=== PATIENT | female | born 1955 | race Caucasian/White ===

== ENCOUNTER 2018-08-03 00:32 | Outpatient (CLI) | payer OTHER, SELFPAY ==
--- NOTE | 2018-08-03 17:45 | DI.MAMMO_ITS ---
SYMPTOM/DIAGNOSIS: SCREENING, Z12.31 MAMMOGRAMS: Mammograms were interpreted according to the usual protocol including computer analysis with CAD system, tomosynthesis and C view imaging. Comparison is with the prior examinations. No masses or microcalcifications are seen. There is nothing to suggest malignancy. IMPRESSION: Negative mammogram. Routine screening is recommended. Category 1 , breast density B. MQSA ASSESSMENT OF FINDINGS: Negative. Category 1. Patient will receive a letter notifying them of these results. BI-RADS category B. There are scattered areas of fibroglandular density.
== END 2018-08-03 00:52 ==
PROVIDERS: PCP Nurse Practitioner Family; Visit Provider Nurse Practitioner Family
DX: Z12.31 Encounter for screening mammogram for malignant neoplasm of breast (principal)
CPT/HCPCS: 77063; 77067

== ENCOUNTER → 2018-10-11 14:44 | Outpatient (BNVA) | payer MEDICARE, OTHER, SELFPAY | PROVIDERS: PCP Nurse Practitioner Family; Visit Provider Surgery | DX: Z12.11 Encounter for screening for malignant neoplasm of colon (principal); Z86.010 Personal history of colon polyps ==

== ENCOUNTER 2018-11-01 06:57 | Day surgery (SDC) | payer OTHER, MEDICARE, SELFPAY ==
--- NOTE | 2018-11-01 06:50 | COLE_ITS ---
Date of service: 11/01/18 Time of Service: 07:55 Colonoscopy Report Date of procedure: 11/01/18 Pre-op diagnosis general: Hx of colon Polyps Post-op diagnosis procedure note: other (mild diverticulosis, transverse colon polyp) Procedure: Colonoscopy with polypectomy by snare Surgeon: Wanda Molina Anesthesia proc note operative: MAC (Ilana Chris, MANNEQUIN MOLD MAKER/ ASA 2) Estimated blood loss (mL): 3 Pathology: other (Transverse polyp) Complications: None Disposition: same day Indications: Mrs. Lindsay is a pleasant 63-year-old female who was seen in the office for a follow-up colonoscopy. At the time of her last colonoscopy she was found to have a tubular adenoma. Risks, benefits, complications were reviewed with her and she wished to proceed. No guarantees were given or implied Prep: Miralax/Dulcolax Procedure Start Time: 07:55 Procedure End Time: 08:15 Retraction Time: 13 Findings: One pedunculated polyp in the transverse colon. Mild diverticulosis of the sigmoid colon Procedure Description: After informed consent was obtained the patient was taken to the procedure room and placed in a left decubitous position. Monitors were applied and a time out was done. The patients name, date of , procedure, allergies to medications and metal in their body was reviewed. The patient was then sedated. Once sedated and comfortable a rectal exam was done. External exam was normal. Internal exam revealed a normal sphincter tone and no palpable masses. The scope was then introduced and retro-flexed. No internal hemorrhoids were identified. The scope was then advanced to the cecum without difficulty. The TI and appendiceal orifice were identified. The prep was good. The scope was then slowly retracted over 13 minutes back into the rectum. One pedunculated polyp was identified in the transverse colon and removed with a snare. A tattooed was noted in the sigmoid colon at the site of her old polyp. No regrowth was noted. There was mild diverticulosis in the sigmoid colon. The scope was removed and the patient was woken up and taken back to Same day surgery in stable condition. The patient tolerated the procedure well and there were no immediate complications. Follow up: The patient should follow up in 3-5 years unless they develop changes in bowel habits or other new gastrointestinal complaints.
--- NOTE | 2018-11-01 06:51 | PDOC.DSDIS_ITS ---
Discharge Plan Disposition Patient Disposition: HOME Condition: Good Discharge Details Reason For Visit: PERSONAL HX COLON POLYPS Attending Provider: Wanda Molina Primary Care Provider: Vani Hale Home Meds and New Rx's Prescriptions: Continue diphenhydramine HCl [Benadryl] 25 MG capsule 25 mg PO PRN RF: 0 pantoprazole 20 MG tablet,delayed release (DR/EC) 20 mg PO DAILY Qty: 90 RF: 3 Varicella-Zoster Ge/As01b/Pf [Shingrix Vial Kit] 50 MCG INJ 50 mcg IM ONCE Qty: 1 RF: 1 Discharge Instructions Instructions: Colonoscopy (DC), Colorectal Polyps (DC), Diverticulosis (DC) Additional Instructions: Findings: 1. One polyp 2. mild diverticulosis Follow up: 3-5 years new medications: none Please call if you develop: fevers >101.5 Nausea or Vomiting Abdominal pain that is not transient DAY SURGERY UNIT POST COLONOSCOPY INSTRUCTIONS 1. Because there will be medication in your system for the next 24 hours, you may feel a little sleepy. Your coordination will be affected. Therefore: a. Do not drive or operate dangerous equipment for 24 hours. b. Do not drink alcohol beverages for 24 hours (not even beer). c. Plan to go home and rest for the day. 2. Generally there are no restrictions on your activity after a day or so has gone by, but you may feel a bit fatigued for a few days. 3 After you arrive home you may have a light meal and return to a normal diet as you can tolerate it without feeling sick to your stomach. 4. After surgery, you may feel pain or discomfort. This should be only transient , but if it persists please contact your doctor. 5. If there are any questions regarding the findings of your procedure, please feel free to contact your doctor. 6. If you are unable to contact your doctor with a problem, contact the hospital at [phone]. 7. Continue all your regular medications unless directed otherwise. I understand the above instructions and have no questions. Signature of Patient or Responsible Adult Escort Date/Time Name of Responsible Adult Escort Signature of Nurse Date/Time Activity:: Activity as Tolerated Diet:: high fiber diet Discharge Orders Discharge Orders: Discharge Order (Routine); Ordered 11/01/18 Ordered By: Wanda Molina DS: Diagnosis Discharge Diagnosis (1) Colorectal polyp detected on colonoscopy: Status: Acute
[2018-11-01 07:03] VITALS: BP 125/64; PULSE 71; RESP 16; TEMP 35.7; O2SAT 100
[2018-11-01] MEDS: Sodium Citrate 30 ML CUP (07:47)
[2018-11-01] MEDS: Lactated Ringers 1,000 ML 30 ML IV (07:48)
--- NOTE | 2018-11-01 08:00 | BOWEL_PTH ---
PATIENT: Melina Lindsay LOC: [facility] U#:[id number] AGE/SX: 63/F ROOM: RE11/01/[address]: Wanda Molina MD : 1955 BED: DIS: 11/01/2018 SPEC #: [id number] RECD: 11/01/18 11:30 STATUS: SANDRITA REEde #: [id number] DARWIN: 11/01/18 08:[address]: Wanda Molina DEPT: Surgical Specimen RECD BY: Nilda Gold ENTERED: 11/01/18 11:32 SP TYPE: Bowel OTHR DR: Vani Hale APRN Tissues: 1 - BIOPSY BOWEL Procedures: GROSS AND MICRO LEVEL 4 Comments: [id number]
[2018-11-01 09:09] VITALS: BP 125/53; PULSE 57; RESP 16; TEMP 36; O2SAT 100
== END 2018-11-01 09:33 | disposition home or self-care (01) ==
LOC: SUR 06:57
PROVIDERS: PCP Nurse Practitioner Family; Visit Provider Surgery
PROC: 0DJD8ZZ Inspection of Lower Intestinal Tract, Via Natural or Artificial Opening Endoscopic (ICD-10-PCS; CPT 45378; principal; 2018-11-01 08:30)
DX: Z12.11 Encounter for screening for malignant neoplasm of colon (principal); D12.3 Benign neoplasm of transverse colon; K57.30 Diverticulosis of large intestine without perforation or abscess without bleeding; Z86.010 Personal history of colon polyps; K21.9 Gastro-esophageal reflux disease without esophagitis
CPT/HCPCS: 45385; 88305

== ENCOUNTER 2020-11-12 02:10 | Outpatient (CLI) | payer OTHER, MEDICARE, SELFPAY ==
[2020-11-13 15:21] LABS: COVID-19 RT-PCR UVMMC Result Negative (Negative)
== END 2020-11-12 02:30 ==
PROVIDERS: PCP Nurse Practitioner Family; Visit Provider Nurse Practitioner Family
DX: Z20.828 Contact with and (suspected) exposure to other viral communicable diseases (principal)
CPT/HCPCS: U0003

== ENCOUNTER 2021-06-25 02:30 | Outpatient (CLI) | payer OTHER, MEDICARE, SELFPAY ==
--- NOTE | 2021-06-25 08:16 | DI.MAMMO_ITS ---
Exam(s) MAMMO SCREENING EXAM: MAMMO SCREENING CLINICAL HISTORY: screening TECHNIQUE: Bilateral full field digital CC and MLO mammographic images were obtained with 3D tomosyn thesis and utilizing computer aided detection (CAD). COMPARISON: Available for comparison. FINDINGS: Masses/Architectural Distortion: None seen. Microcalcifications: No suspicious pleomorphic-type are seen. Skin Thickening/Nipple Retraction: None. IMPRESSION: 1. No significant interval change with no specific features of malignancy noted. 2. Unless there is more urgent need, screening mammography is recommended, as per [place] [employer] guidelines. BI-RADS Category 1 - Negative Breast Density - Category B - Scattered areas of fibroglandular density Breast density category C or D implies that the patient has dense breast tissue. Dense breast tissue is very common and is not abnormal but dense breast tissue can make it harder to find cancer on a ma mmogram. Also, dense breast tissue may increase their breast cancer risk. This information about the result of the mammogram report was provided to the patient to raise their awareness. Use this report when you speak with the patient about their risks for breast cancer, which includes their family hist ory. At that time, you may recommend for more screening tests (Ultrasound or MRI) as they might be us eful based on their risk. A negative radiographic report should not delay biopsy if a dominant or clinically suspicious mass is present. Up to ten percent of cancers are not identified on mammography. A negative report may reinforce clinical impression. Adenosis and dense breasts may obscure an underlying neoplasm. False positive reports average 6 to 10%. Patient will receive a letter notifying them of these results.
== END 2021-06-25 02:50 ==
PROVIDERS: PCP Nurse Practitioner Family; Visit Provider Nurse Practitioner Family
DX: Z12.31 Encounter for screening mammogram for malignant neoplasm of breast (principal); R92.8 Other abnormal and inconclusive findings on diagnostic imaging of breast
CPT/HCPCS: 77063; 77067

== ENCOUNTER 2021-06-25 03:35 | Outpatient (CLI) | payer OTHER, MEDICARE, SELFPAY ==
[2021-06-25 11:53] LABS: Anion Gap 8.5 mmol/L (3-11); BUN 14 mg/dL (7-18); CO2 30.5 mmol/L (21.0-32.0); Calculated LDL 96 mg/dL (<100); Chloride 106 mmol/L (98-107); Cholesterol 161 mg/dL (<200); Glucose 71 mg/dL (74-106); HDL Cholesterol 56 mg/dL (40-60); Potassium 4.2 mmol/L (3.5-5.1); Sodium 145 mmol/L (136-145); Triglyceride 46 mg/dL (<150)
== END 2021-06-25 03:36 | disposition home or self-care (01) ==
LOC: LBO 03:35
PROVIDERS: PCP Nurse Practitioner Family; Visit Provider Nurse Practitioner Family
DX: E78.5 Hyperlipidemia, unspecified (principal); Z13.1 Encounter for screening for diabetes mellitus
CPT/HCPCS: 36415; 80048; 80061

== ENCOUNTER → 2022-05-13 09:36 | Outpatient (CLI) | payer MEDICARE, SELFPAY ==
--- NOTE | 2022-05-13 10:52 | DI.RAD_ITS ---
Exam(s) XR HIP LT COMPLETE AP PELVIS EXAM: XR HIP LT COMPLETE AP PELVIS CLINICAL HISTORY: Pain after a fall W19.XXXA. TECHNIQUE: 2D digital imaging was performed. COMPARISON: No exams were available for comparison FINDINGS: 3 views No evidence of pelvic nor hip fracture. Mild degenerative changes noted in the left hip. There is n o joint space narrowing but there is a small marginal osteophyte at the level of the left femoral hea d, this best seen on the lateral view. Bone density normal. No osseous lesions identified. Sacroiliac joints unremarkable. IMPRESSION: Mild degenerative changes in the left hip, as described above DATA REPOSITORY: RADIATION DOSE DELIVERED:
== END ==
PROVIDERS: PCP Nurse Practitioner Family; Visit Provider Family Medicine
DX: W19.XXXA Unspecified fall, initial encounter (principal); G89.11 Acute pain due to trauma; M25.552 Pain in left hip
CPT/HCPCS: 73502

== ENCOUNTER 2022-07-24 03:00 | Outpatient (CLI) | payer MEDICARE, SELFPAY ==
[2022-07-24 09:59] LABS: Anion Gap 6.7 mmol/L (3-11); BUN 15 mg/dL (7-18); CO2 28.3 mmol/L (21.0-32.0); CREATININE 1.1 mg/dL (0.55-1.02); Calcium 8.9 mg/dL (8.5-10.1); Chloride 106 mmol/L (98-107); Estimated GFR 49.39 (mL/min/1.73m2); Glucose 84 mg/dL (74-106); Potassium 3.7 mmol/L (3.5-5.1); Sodium 141 mmol/L (136-145)
== END 2022-07-24 03:01 | disposition home or self-care (01) ==
LOC: LBO 03:00
PROVIDERS: PCP Nurse Practitioner Family; Visit Provider Nurse Practitioner Family
DX: Z13.1 Encounter for screening for diabetes mellitus (principal)
CPT/HCPCS: 36415; 80048

== ENCOUNTER → 2022-10-03 00:45 | Outpatient (CLI) | payer MEDICARE, SELFPAY ==
--- NOTE | 2022-10-03 08:15 | DI.DEXA_ITS ---
Exam(s) XR DEXA BONE DENSITY W/WO YASMIN EXAM: XR DEXA BONE DENSITY W/WO YASMIN CLINICAL HISTORY: screeNing for osteoporosis IN POSTMENOPAUSAL WOMAN,Z78.0 TECHNIQUE: Routine DEXA evaluation of the lumbar spine, hip, or forearm. COMPARISON: No exams were available for comparison FINDINGS: Performed on a Hologic unit. Lateral image: No compression fracture evident. Lumbar Spine total T-score: -2.1 Hip total T-score:-2.6 Independent reading at the level of the femoral neck yields at T-score of -2.0 Forearm total T-score: -1.6 IMPRESSION: Bone mineral density measures in the osteoporosis range. Fracture risk is high. Note: Any spine fracture indicates 5x risk for subsequent spine fracture and 2x risk for subsequent h ip fracture. World Health Organization criteria for BMD interpretation classify patients: Normal...... T- Score at or above -1.0 Osteopenic... T- Score between -1.0 and -2.5 Osteoporosis... T-Score at or below -2.5
--- NOTE | 2022-10-03 08:15 | DI.MAMMO_ITS ---
Exam(s) MAMMO SCREENING EXAM: MAMMO SCREENING CLINICAL HISTORY: screening,Z12.39. TECHNIQUE: Bilateral full field digital CC and MLO mammographic images were obtained with 3D tomosyn thesis and utilizing computer aided detection (CAD). COMPARISON: Prior mammograms were reviewed. FINDINGS: There has been no significant change in the appearance and distribution of the fibroglandular tissue. There are no new spiculated masses nor malignant appearing microcalcification groups. Asymmetric density laterally in left breast is unchanged. There is no significant architectural distortion nor skin thickening-retraction. IMPRESSION: No radiographic evidence of malignancy. BI-RADS Category 1 - Negative Breast Density - Category B - Scattered areas of fibroglandular density Breast density Category C or D implies that the patient has dense breast tissue. Dense breast tissue can make it harder to find cancer on a mammogram. Dense breast tissue is also associated with an incr eased risk of breast cancer. This information about the result of the mammogram report was provided to the patient to raise their awareness. Use this report when you speak with the patient about their risks for breast cancer, which includes their family history. At that time, you may recommend additional screening tests (Ultrasoun d or MRI) as these tests may add significant information. A negative radiographic report should not delay biopsy if a dominant or clinically suspicious mass is present. Up to ten percent of cancers are not identified on mammography. A negative report may reinforce clinical impression. Adenosis and dense breasts may obscure an underlying neoplasm. False positive reports average 6 to 10%. Patient will receive a letter notifying them of these results.
== END ==
PROVIDERS: PCP Nurse Practitioner Family; Visit Provider Nurse Practitioner Family
DX: Z12.31 Encounter for screening mammogram for malignant neoplasm of breast (principal); Z13.820 Encounter for screening for osteoporosis; Z78.0 Asymptomatic menopausal state; M81.0 Age-related osteoporosis without current pathological fracture
CPT/HCPCS: 77063; 77067; 77080

== ENCOUNTER 2023-01-22 01:07 | Outpatient (CLI) | payer MEDICARE, SELFPAY ==
--- NOTE | 2023-01-22 07:00 | DI.MRI_ITS ---
Exam(s) MR IAC BRAIN WO/W EXAM: MR IAC BRAIN WO/W CLINICAL HISTORY: Asymmetrical hearing loss,H90.3. TECHNIQUE: Multiplanar multisequence MRI of the brain and internal auditory canals was performed. CONTRAST MATERIAL: IV Contrast: 12 mL of Dotarem contrast administered. COMPARISON: No exams were available for comparison FINDINGS: VENTRICLES AND EXTRA AXIAL SPACES: Normal in size and morphology for the patient's age. HEMORRHAGE: None. CEREBRAL PARENCHYMA: No focus of restricted diffusion to suggest acute infarct. No space-occupying le brian identified. MIDLINE SHIFT: None. BRAINSTEM/CEREBELLUM: Normal. CALVARIUM: Normal. ENHANCEMENT: No suspicious enhancement identified. VISUALIZED PARANASAL SINUSES/MASTOIDS: Clear. [facility]: Normal flow void. PITUITARY GLAND: Unremarkable. IAC/CP ANGLE: The internal auditory canals are within normal limits. The cerebellar pontine angles ar e unremarkable. No enhancing lesions are seen. Visualized portion of the facial nerves appear within normal limits. OTHER FINDINGS: None. IMPRESSION: 1. No evidence of an intracranial mass or enhancing lesion. 2. No evidence of an acute infarct. DATA REPOSITORY:
[2023-01-22 09:17] LABS: CREATININE 1.1 mg/dL (0.55-1.02); Estimated GFR 54.39 (mL/min/1.73m2)
[2023-01-22] MEDS: Normal Saline Flush 10 ML SYR IVP (09:53)
[2023-01-22] MEDS: Gadoterate meglumine 20 ML VIAL IVP (09:54)
== END 2023-01-22 01:27 ==
PROVIDERS: PCP Nurse Practitioner Family; Visit Provider Registered Nurse Maternal Newborn
DX: H90.3 Sensorineural hearing loss, bilateral (principal); Z01.812 Encounter for preprocedural laboratory examination
CPT/HCPCS: 70553; 82565

== ENCOUNTER 2023-09-03 09:56 | Outpatient (REF) | payer MEDICARE, SELFPAY | END 2023-09-03 09:57 | disposition home or self-care (01) | LOC: SUO 09:56 | PROVIDERS: PCP Nurse Practitioner Family; Referring Provider Nurse Practitioner Family; Visit Provider Physical Therapy Assistant | DX: D22.61 Melanocytic nevi of right upper limb, including shoulder (principal) | CPT/HCPCS: 11402; 99203 ==

== ENCOUNTER 2023-09-03 11:33 | Outpatient (REF) | payer MEDICARE, SELFPAY ==
--- NOTE | 2023-09-03 10:40 | SKI_PTH ---
PATIENT: Melina Lindsay LOC: [facility]#:[id number] AGE/SX: 67/F ROOM: RE09/03/[address]: AISSATOU Benson : 1955 BED: DIS: 09/03/2023 SPEC #: [id number] RECD: 09/03/23 12:42 STATUS: SANDRITA REQ #: [id number] DARWIN: 09/03/23 10:[address]: Rosaura Willams DEPT: Surgical Specimen RECD BY: Nilda Gold ENTERED: 09/03/23 12:42 SP TYPE: ALEKSANDAR BURNETT DR: Vani Hale APRN Tissues: 1 - SKIN BIOPSY(SHAVE/PUNCH) Procedures: SKIN LEVEL 4 Comments: [id number]
== END 2023-09-03 11:34 | disposition home or self-care (01) ==
LOC: LBN 11:33
PROVIDERS: PCP Nurse Practitioner Family; Visit Provider Physical Therapy Assistant
DX: D22.61 Melanocytic nevi of right upper limb, including shoulder (principal)
CPT/HCPCS: 88305

== ENCOUNTER → 2023-10-05 00:32 | Outpatient (CLI) | payer MEDICARE, SELFPAY ==
--- NOTE | 2023-10-05 12:15 | DI.MAMMO_ITS ---
Exam(s) MAMMO SCREENING EXAM: MAMMO SCREENING CLINICAL HISTORY: screening,Z12.39 TECHNIQUE: Bilateral full field digital CC and MLO mammographic images were obtained with 3D tomosyn thesis and utilizing computer aided detection (CAD). COMPARISON: Available for comparison. FINDINGS: Masses/Architectural Distortion: There are stable breast nodules. No new nodules are seen. No areas of architectural distortion are present. Microcalcifications: No suspicious pleomorphic-type are seen. Skin Thickening/Nipple Retraction: None. IMPRESSION: 1. No significant interval change with no specific features of malignancy noted. 2. Unless there is more urgent need, screening mammography is recommended, as per [place] [employer] guidelines. BI-RADS Category 2 - Benign Findings Breast Density - Category B - Scattered areas of fibroglandular density Breast density category C or D implies that the patient has dense breast tissue. Dense breast tissue is very common and is not abnormal but dense breast tissue can make it harder to find cancer on a ma mmogram. Also, dense breast tissue may increase their breast cancer risk. This information about the result of the mammogram report was provided to the patient to raise their awareness. Use this report when you speak with the patient about their risks for breast cancer, which includes their family hist ory. At that time, you may recommend for more screening tests (Ultrasound or MRI) as they might be us eful based on their risk. A negative radiographic report should not delay biopsy if a dominant or clinically suspicious mass is present. Up to ten percent of cancers are not identified on mammography. A negative report may reinforce clinical impression. Adenosis and dense breasts may obscure an underlying neoplasm. False positive reports average 6 to 10%. Patient will receive a letter notifying them of these results.
== END ==
PROVIDERS: PCP Nurse Practitioner Family; Visit Provider Nurse Practitioner Family
DX: Z12.31 Encounter for screening mammogram for malignant neoplasm of breast (principal); R92.323 Mammographic fibroglandular density, bilateral breasts
CPT/HCPCS: 77063; 77067

== ENCOUNTER → 2023-10-16 01:04 | Outpatient (CLI) | payer MEDICARE, SELFPAY ==
--- NOTE | 2023-10-16 06:45 | DI.US_ITS ---
Exam(s) US ABDOMEN EXAM: US ABDOMEN CLINICAL HISTORY: lower abdominal pain, nausea,r10.9 TECHNIQUE: Ultrasound abdomen performed using standard protocol. COMPARISON: No exams were available for comparison FINDINGS: ABDOMINAL AORTA AND IVC: Visualized portions normal caliber. PANCREAS: Normal where visualized. LIVER: Normal. Hepatopedal flow in the Portal Vein. The liver measures 13.3 cm long. There is a 1.1 x 0.9 x 1.5 cm cyst in the liver. No follow-up is recommended. GALLBLADDER:No evidence of cholelithiasis. No evidence of wall thickening. No pericholecystic fluid i dentified. BILIARY SYSTEM: Common bile duct measures < 7 mm. No intrahepatic biliary ductal dilation. SAMUELS'S SIGN: Negative. KIDNEYS: Kidneys are symmetric in size. No evidence of renal calculi. No evidence of hydronephrosis. No renal mass or cyst identified. SPLEEN: Not enlarged. There is a 1.4 x 0.9 x 1.1 cm splenic cyst. ASCITES: None seen. IMPRESSION: No evidence of cholelithiasis or biliary ductal dilatation. No acute abdominal process. DATA REPOSITORY:
== END ==
PROVIDERS: PCP Nurse Practitioner Family; Visit Provider Nurse Practitioner
DX: R10.9 Unspecified abdominal pain (principal); R11.0 Nausea
CPT/HCPCS: 76700

== ENCOUNTER 2023-10-16 02:59 | Outpatient (CLI) | payer MEDICARE, SELFPAY ==
[2023-10-16 07:44] LABS: Abs Immature Grans 0.02 10^3/uL (0.0-0.06); Absolute Basophil Count 0.07 10^3/uL (0.0-0.2); Absolute Eosinophil Count 0.25 10^3/uL (0.0-0.7); Absolute Lymphocyte Count 2.22 10^3/uL (1.2-3.4); Absolute Monocyte Count 0.34 10^3/uL (0.1-0.8); Absolute Neutrophil Count 2.68 10^3/uL (1.2-6.7); Basophils % 1.3; Eosinophils % 4.5; HCT 45.1 % (36.0-46.0); HGB 15.1 g/dL (11.2-15.7); Immature Grans % 0.4; Lymphocytes % 39.8; MCH 30.3 pg (27.0-33.0); MCHC 33.5 % (32.0-36.0); MCV 91 fL (80-95); MPV 9.3 fL (8.0-11.0); Monocytes % 6.1; Neutrophils % 47.9; Platelet Count 193 10^3/uL (130-400); RBC 4.98 10^6/uL (3.93-5.22); RDW 12.1 % (11.7-14.6); RDW-SD 40.4 fL; WBC 5.58 10^3/uL (4.4-10.8)
[2023-10-16 08:12] LABS: ALT 20 U/L (14-59); AST 17 U/L (15-37); Albumin 3.8 g/dL (3.4-5.0); Alkaline Phosphatase 80 U/L (46-116); Anion Gap 7.7 mmol/L (3-11); BUN 13 mg/dL (7-18); Bilirubin, Total 0.7 mg/dL (0.2-1.0); CO2 28.3 mmol/L (21.0-32.0); CREATININE 1.2 mg/dL (0.55-1.02); Calcium 9.8 mg/dL (8.5-10.1); Chloride 105 mmol/L (98-107); Glucose 94 mg/dL (74-106); Lipase 37 U/L (16-77); Potassium 3.9 mmol/L (3.5-5.1); Sodium 141 mmol/L (136-145); Total Protein 7.7 g/dL (6.4-8.2)
== END 2023-10-16 03:00 | disposition home or self-care (01) ==
LOC: LBO 02:59
PROVIDERS: Absent Provider Nurse Practitioner; PCP Nurse Practitioner Family; Referring Provider Nurse Practitioner; Visit Provider Nurse Practitioner
DX: K21.00 Gastro-esophageal reflux disease with esophagitis, without bleeding (principal); J45.909 Unspecified asthma, uncomplicated; K90.49 Malabsorption due to intolerance, not elsewhere classified
CPT/HCPCS: 36415; 80053; 83690; 85025

== ENCOUNTER → 2024-01-14 11:20 | Outpatient (BNVA) | payer MEDICARE, SELFPAY | PROVIDERS: PCP Nurse Practitioner; Referring Provider Nurse Practitioner; Visit Provider Surgery | DX: Z12.11 Encounter for screening for malignant neoplasm of colon (principal); Z86.010 Personal history of colon polyps; R13.10 Dysphagia, unspecified | CPT/HCPCS: 99214 ==

== ENCOUNTER 2024-02-02 08:25 | Day surgery (SDC) | payer MEDICARE, SELFPAY ==
[2024-02-02 08:39] VITALS: BP 123/62; PULSE 82; RESP 16; TEMP 36.9; O2SAT 99
[2024-02-02] MEDS: Lactated Ringers 1,000 ML 80 ML IV (09:07)
--- NOTE | 2024-02-02 09:22 | W.ANESPRE ---
General Info Date of Service Date Performed: 02/02/24 Height: 5 ft Weight: 62.8 kg Body Mass Index (BMI): 27.0 Surgical Procedure: Operation Date: 02/02/24 09:50 Proposed Procedure Side Surgeon p Colonoscopy/Gastroscopy Jax Fowler MD Meds Allergies and Home Medications Allergies Allergy/AdvReac Type Severity Reaction Status Date / Time loratadine [From Claritin] Allergy Severe Hives Verified 02/02/24 08:37 tomato [Tomato] Allergy Severe Hives Verified 02/02/24 08:37 gluten Allergy self Verified 02/02/24 08:37 reported lactose Allergy Other (See Verified 02/02/24 08:37 Comment) fluticasone AdvReac Other (See Verified 02/02/24 08:37 Comment) prednisone AdvReac Racing Verified 02/02/24 08:37 heart, heavy legs Home Medication Medication Instructions Recorded diphenhydramine HCl 25 mg capsule 25 mg PO PRN 11/20/17 (Benadryl) acetaminophen 650 mg See Rx Instructions PO Q12H PRN 07/31/22 tablet,extended release pain [id number] 18 mg-FA 400 1 tab PO DAILY 11/19/22 mcg-calcium 500 mg-vit K 50 mcg tablet (Women's Multivitamin) turmeric root extract 500 mg 1,000 mg PO DAILY 11/19/22 capsule calcium carbonate 600 mg calcium 600 mg PO DAILY 01/14/24 (1,500 mg) tablet (Calcium) Current Visit Medications: Current Medications Generic Name Dose Route Start Last Admin Trade Name Freq PRN Reason Stop Dose Admin Ringer's Solution 1,000 mls @ 80 mls/hr 02/02/24 06:00 02/02/24 09:07 IV 03/02/24 23:59 80 mls/hr INFUSION DESHAWN Administration IV Miscellaneous Supplies 1 each 02/02/24 06:00 Iv Access IV 03/02/24 23:59 DIRECTED DESHAWN Sodium Chloride 0 ml 02/02/24 06:00 Normal Saline Flush 10 Ml Syr IV 03/02/24 23:59 PRN PRN Sodium Chloride 0 ml 02/02/24 06:00 Normal Saline 10 Ml Vial IJ 03/02/24 23:59 DIRECTED PRN Sterile Water 0 ml 02/02/24 06:00 Water,Injection,Sterile 10 Ml Vial IJ 03/02/24 23:59 DIRECTED PRN PFSH Active Problems Active Problems: Problem Status Onset Code Adenomatous polyps D36.9 Nevus D22.9 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 Osteoporosis M81.0 Chronic kidney disease N18.9 History of gluten sensitivity History of colon polyps Z86.010 Hiatal hernia Gastroesophageal reflux disease with esophagitis 04/23/17 K21.0 Hyperlipidemia 07/08/17 E78.5 Irritable bowel syndrome 05/07/17 K58.9 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 Dysphagia 04/23/17 R13.10 Medical History Medical History COVID (~07/2021) Diverticulosis of large intestine without hemorrhage (04/23/17) Dry eye Dysphagia Foot joint pain Herpes zoster (04/23/17) Tubular adenoma (04/23/17) Surgical History Surgical History ABDOMINAL- RUPTURED OVARIAN CYST Appendectomy Colonoscopy - IV Sedation (02/20/10) EGD - IV Sedation (02/20/10) H/O colonoscopy (~11/01/18) 06/13/13 - Dr Mendoza - tubular adenoma x 2 11/01/18- 1 polyp Tobacco Smoking/Tobacco Use Status: Never Passive smoking exposure: No Alcohol Alcohol Intake: never Substance Use Substance use: Never Substance use type: does not use Vital Signs and Lab Results Vital Signs Most Recent Vital Signs in EMR: Most Recent Vital Signs Temp Pulse Resp BP Pulse Ox 36.9 C 82 16 123/62 99 02/02/24 08:39 02/02/24 08:39 02/02/24 08:39 02/02/24 08:39 02/02/24 08:39 Lab Results Blood Type / Crossmatch: No Data to Display Complete Blood Count: No Data to Display Complete Metabolic Panel: No Data to Display Liver Function Panel: No Data to Display Coagulation Panel: No Data to Display Cardiac Panel: No Data to Display Arterial Blood Gas: No Data to Display Venous Blood Gas: No Data to Display Pancreas Panel: No Data to Display Thyroid Panel: No Data to Display Infectious Disease: No Data to Display Blood Cultures: No Data to Display Toxicology Panel: No Data to Display Anesthesia Assessment and Plan Anesthesia History Personal History: No History of Anesthesia Complications Family History: No Family History of Anesthesia Complications Exercise Tolerance Exercise Tolerance: Metabolic Equivalents>4 Pertinent Negatives Pertinent Negatives: No Major Cardiovascular Symptoms or Complaints and No Major Pulmonary Symptoms or Complaints Cardiac & Pulmonary Exam Cardiac Exam: Normal S1/S2 Heart Sounds Pulmonary Exam: Clear Bilateral Breath Sounds Implantable Cardiac Device Does patient have a Pacemaker or an ICD?: No Airway Exam Known Difficult Airway: No Mallampati Class: 1 Mouth Opening: Normal (> 3cm) Thyromental Distance: Greater than 3 cm Neck Range of Motion: Full ROM Neck Circumference: Normal Teeth Condition: Removable Dentures/Plates Upper ASA Classification ASA Score: ASA 2 Emergency Case?: No NPO Status NPO Status: NPO Clears >2 hours, Solids >8 hours Anesthesia Plan Resuscitation Status: Full Code Anesthesia Technique: General Anesthesia Airway Planned: Natural Airway Monitors Used: Standard Monitors
[2024-02-02 09:24] VITALS: BMI 27.0
--- NOTE | 2024-02-02 09:46 | STOM_PTH ---
PATIENT: Melina Lindsay LOC: [facility] U#:[id number] AGE/SX: 68/F ROOM: RE02/02/[address]: Jax Fowler : 1955 BED: DIS: 02/02/2024 SPEC #: [id number] RECD: 02/02/24 12:46 STATUS: SANDRITA [facility] #: [id number] DARWIN: 02/02/24 09:[address]: Jax Fowler DEPT: Surgical Specimen RECD BY: Nilda Gold ENTERED: 02/02/24 12:48 SP TYPE: STOMACH OTHR DR: Vero Mott APRN Tissues: 1 - STOMACH BIOPSY 2 - ESOPHAGUS BIOPSY 3 - ESOPHAGUS BIOPSY 4 - ESOPHAGUS BIOPSY Procedures: GROSS AND MICRO LEVEL 4 IMMUNOPEROXIDASE STAIN Comments: [id number]
[2024-02-02 10:14] VITALS: BP 120/64; PULSE 66; RESP 18; TEMP 36.5; O2SAT 99
--- NOTE | 2024-02-02 10:16 | W.COLOREPORT ---
Date of service: 02/02/24 Time of Service: 10:16 Colonoscopy Report Procedure Description: PROCEDURES PERFORMED: 1. Colonoscopy PREOPERATIVE DIAGNOSIS: Surveillance colonoscopy, Colon polyps POSTOPERATIVE DIAGNOSIS: Mild diverticular changes in the left colon, grade 1 internal hemorrhoids SURGEON: Jaquan Fowler MD INDICATION FOR PROCEDURE: The patient is a 68-year-old woman who has a history of adenomatous polyps in the past. No definitive family history of colon cancer though her father of some sort of cancer in his pelvis area. She denies symptoms. FINDINGS: Terminal ileum looked normal. Some mild/minimal diverticular changes are present in the left colon mostly. I did not find any new polyps. There is minimal/mild grade 1 internal hemorrhoid disease noted. SURVEILLANCE interval/FOLLOW-UP: Considering her personal history of adenomatous polyps in the past I think it is reasonable to go to a 7-year repeat. SPECIMENS: None EBL: Minimal COMPLICATIONS: None QUALITY of prep: Excellent Procedure in detail: The patient gave written consent and was in agreement with the indications, the potential risks as well as the benefits of the procedure. She was turned from upper endoscopy (see separate procedure note) and kept in the same position and anesthesia was continued which was tolerated well. I began the colonoscopy portion of the procedure. Digital rectal and visual examination was performed and grossly within normal limits. A well-lubricated flexible colonoscope was then introduced and passed without any notable difficulty all the way to the cecum identified by the ileocecal valve and the appendiceal orifice. I intubated the terminal ileum and it was normal. The scope was then slowly withdrawn with the above-noted findings. The patient tolerated the procedure well and was taken to the PACU in hemodynamically stable condition.
--- NOTE | 2024-02-02 10:17 | W.PM.ENDDOP ---
Date of service: 02/02/24 Time of Service: 10:17 Endoscopy Report PROCEDURE DESCRIPTION: PROCEDURES PERFORMED: 1. EGD with biopsies PREOPERATIVE DIAGNOSIS: Dysphagia, episodic GERD POSTOPERATIVE DIAGNOSIS: Moderate?size type I sliding hiatal hernia, esophagus stricture, distal esophagitis SURGEON: Jaquan Fowler MD INDICATION FOR PROCEDURE: 68-year-old woman who has random attacks of difficulty swallowing and coughing. She also experiences GERD on a regular basis but treats it with lifestyle and dietary modification. FINDINGS: D2/D3 = normal D1/bulb = normal - no ulcers or inflammation Pylorus = normal Antrum = normal appearance, no ulcers, cold forceps biopsies were taken to rule out H. pylori routinely Body = normal appearance, biopsies taken with cold forceps technique routinely Fundus = normal, no polyps Cardia = normal Hiatus = Hill grade 2 hiatal opening, type I sliding hiatal hernia, moderate in size (2-3 cm slide) Distal esophagus = there is a circumferential but otherwise minimal, benign?appearing stricture present at the GE junction and this was biopsied with cold forceps technique. There was no visible esophagitis or Tomas's esophagus but separate cold forceps biopsies were taken of the distal esophagus. Mid esophagus = normal, cold forceps biopsies taken routinely to rule out eosinophilic esophagitis (not suspected) Proximal esophagus/hypopharynx/vocal cords = normal FOLLOW-up: Patient should follow-up in the office to discuss her hiatal hernia. This is the cause of her reflux and her dysphagia and stricture. Specimens: Yes EBL: Minimal COMPLICATIONS: None Procedure in detail: The patient gave written consent and was in agreement with the indications, the potential risks as well as the benefits of the procedure. The patient was taken to the endoscopy suite and laid on their left side. Anesthesia was given which was tolerated well. We performed a timeout and we are in agreement I started the procedure. A well-lubricated endoscope was gently and carefully advanced down the esophagus, into the stomach the scope was and through the pylorus into the duodenum. The scope was then slowly withdrawn with the above-noted findings/interventions. The patient tolerated the procedure well and was then turned for colonoscopy (see separate procedure note).
--- NOTE | 2024-02-02 10:21 | W.ANESPOSTOP ---
Postoperative Evaluation Date, Time and Location Date Performed: 02/02/24 Time Performed: 10:21 Patient Location: Day Surgery Unit Vital Signs Most Recent Imported Vital Signs: Most Recent Vital Signs Temp Pulse Resp BP Pulse Ox 36.5 C 66 18 120/64 99 02/02/24 10:14 02/02/24 10:14 02/02/24 10:14 02/02/24 10:14 02/02/24 10:14 Pain Score Most Recent Pain Score: Most Recent Pain Score Pain Level 0 02/02/24 10:14 Assessment Mental Status: Arousable with meaningful communication Airway and Respiratory Function: Patent airway with normal (patient baseline) respiratory exam Cardiovascular Function: Hemodynamically Stable Hydration Status: Adequately Hydrated Nausea & Vomiting: No Nausea or Vomiting Pain: Pt. Denies Any Pain Peripheral Nerve Block: Patient did not receive a nerve block
--- NOTE | 2024-02-02 10:24 | W.PM.DSUDISC ---
Date of service: 02/02/24 Time of Service: 10:24 Discharge Plan Disposition Patient Disposition: Home Condition: Good Discharge Details Attending Provider: Jax Fowler Primary Care Provider: Vero Mott Home Meds and New Rx's Prescriptions: No Action acetaminophen 650 mg tablet extended release See Rx Instructions PO Q12H PRN (Reason: pain) Rx Instructions: 1-2 tabs orally every 12 hours PRN; calcium carbonate [Calcium 600] 600 mg calcium (1,500 mg) tablet 600 mg PO DAILY Women's Multivitamin 18 mg-400 mcg- 500 mg-50 mcg tablet 1 tab PO DAILY turmeric root extract 500 mg capsule 1,000 mg PO DAILY diphenhydramine HCl [Benadryl] 25 MG capsule 25 mg PO PRN Discharge Instructions Additional Instructions: FINDINGS: On upper endoscopy, you have a moderate?sized type I sliding hiatal hernia. This is causing some narrowing and scar tissue at the bottom of your esophagus which is the reason you are having swallowing issues. This area is also a little bit inflamed and this would all be related to the acid reflux as well. This hernia can be fixed and would likely fix your swallowing issues. On the colonoscopy, no new polyps were found. Again noted was diverticular disease which is common, benign and nothing needs to be done about it. That condition will never go away. Because of your personal history and the unknown family history, it probably makes sense to do another colonoscopy in 7 years. Stand Alone Forms: Anesthesia Discharge Inst., DSU Post EGD Instructions, Colonoscopy Post Instructions, Bridger Arias (DSU) Activity:: Activity as Tolerated Diet:: As Tolerated
[2024-02-02 10:45] VITALS: BP 127/63; PULSE 59; RESP 16; TEMP 36.7; O2SAT 99
== END 2024-02-02 11:25 | disposition home or self-care (01) ==
PROVIDERS: PCP Nurse Practitioner; Visit Provider Student in an Organized Health Care Education/Training Program
PROC: (CPT 43239; principal; 2024-02-02 09:45)
DX: Z12.11 Encounter for screening for malignant neoplasm of colon (principal); K57.30 Diverticulosis of large intestine without perforation or abscess without bleeding; K64.0 First degree hemorrhoids; Z86.010 Personal history of colon polyps; K44.9 Diaphragmatic hernia without obstruction or gangrene; K22.2 Esophageal obstruction; K20.90 Esophagitis, unspecified without bleeding; K31.89 Other diseases of stomach and duodenum; K22.89 Other specified disease of esophagus
CPT/HCPCS: 43239; G0105; 00123; 88305; 88361; J2001; J2704

== ENCOUNTER → 2024-02-22 12:50 | Outpatient (BNVA) | payer MEDICARE, SELFPAY | PROVIDERS: PCP Nurse Practitioner; Referring Provider Nurse Practitioner; Visit Provider Student in an Organized Health Care Education/Training Program | DX: K21.9 Gastro-esophageal reflux disease without esophagitis (principal); K44.9 Diaphragmatic hernia without obstruction or gangrene | CPT/HCPCS: 99215 ==

== ENCOUNTER → 2024-03-02 03:11 | Outpatient (CLI) | payer MEDICARE, SELFPAY ==
[2024-03-02] MEDS: Simethicone/Sod Bicarb/Cit Ac, 4 gram PACKET 1 PACKET PO (09:51)
[2024-03-02] MEDS: Barium Sulfate 98% W/W 140 ML BTL PO (09:52)
[2024-03-02] MEDS: Barium Sulfate 60% W/V 355 ML BTL PO (09:52)
--- NOTE | 2024-03-02 09:52 | DI.RAD_ITS ---
Exam(s) RF BARIUM SWALLOW EXAM: RF BARIUM SWALLOW CLINICAL HISTORY: assess for swallowing and Hiatal Hernia,gerd,k21.9 TECHNIQUE: 2D and realtime digital imaging was performed. CONTRAST MATERIAL: Oral barium contrast was administered. COMPARISON: Correlation is made with endoscopy report from 02/02/2024. FINDINGS: CHEST X-RAY: The heart and pulmonary vasculature are within normal limits. The lungs are clear. No pl eural effusion or pneumothorax is present. The bones are within normal limits for the patient's age. There are moderate degenerative changes seen at C4-5 through C6-C7. ESOPHAGRAM: The esophagus is patent with no evidence for erosions, fold thickening, strictures, or ma sses. With regards to the motility, there is a normal primary stripping wave. No tertiary contraction s were noted. There is a small hiatal hernia. IMPRESSION: Small hiatal hernia. No evidence of gastroesophageal reflux. No suspicious intrinsic or extrinsic m asses are seen. RADIATION DOSE DELIVERED: Marior=8.69 mGy
== END ==
PROVIDERS: PCP Nurse Practitioner; Visit Provider Student in an Organized Health Care Education/Training Program
DX: K21.9 Gastro-esophageal reflux disease without esophagitis (principal); K44.9 Diaphragmatic hernia without obstruction or gangrene; M50.321 Other cervical disc degeneration at C4-C5 level; M50.322 Other cervical disc degeneration at C5-C6 level; M50.323 Other cervical disc degeneration at C6-C7 level
CPT/HCPCS: 74221; J3490

== ENCOUNTER → 2024-05-19 08:49 | Outpatient (BNVA) | payer MEDICARE, SELFPAY | PROVIDERS: PCP Nurse Practitioner; Referring Provider Nurse Practitioner; Visit Provider Student in an Organized Health Care Education/Training Program | DX: K44.9 Diaphragmatic hernia without obstruction or gangrene (principal); K21.9 Gastro-esophageal reflux disease without esophagitis | CPT/HCPCS: 99215 ==

== ENCOUNTER 2024-07-26 06:24 | Observation (INO) | payer MEDICARE, SELFPAY ==
--- NOTE | 2024-07-25 12:28 | HPE_ITS ---
Date of service: 07/26/24 Time of Service: 07:30 Assessment and Plan Assessment and plan (1) Hiatal hernia: Status: Chronic Assessment and plan: 68-year-old woman with a symptomatic hiatal hernia and dysphagia related to GERD?mediated esophagus stricture. Here for laparoscopic repair and antireflux surgery. Hemodynamically stable, emotionally and psychologically prepared for surgery. Overall plan: Laparoscopic hiatal hernia repair with Bradford fundoplication History of Present Illness Narrative: 68-year-old woman is here for an elective hiatal hernia repair. No changes in any of her symptoms. No new symptoms of concern. No unusual chest discomfort or shortness of breath or acute/recent illnesses. PFSH All Active Problems GERD (gastroesophageal reflux disease) (Chronic) Adenomatous polyps (Acute) Nevus (Acute) Asymmetrical sensorineural hearing loss (Acute) Osteoporosis (Chronic) 10/03/2022 DEXA: femoral neck T-score Chronic kidney disease (Chronic) History of gluten sensitivity (Acute) Pt reports she took a test via home kit and it told her she had gluten allergy History of colon polyps (Acute) Hiatal hernia (Chronic) Gastroesophageal reflux disease with esophagitis (Chronic 04/23/17) Hyperlipidemia (Chronic 07/08/17) 06/2017 labwork: 10-year ASCVD risk = 4.2% --> no statin indicated at this time Irritable bowel syndrome (Chronic 05/07/17) 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 final dx: A. Stomach, Antrum:antral mucosa with mild reactive gastropathy changes. H.Pylori stain is negative. B. Esophagus,Distal: squamos mucosa with mild reactive changes, no increase in intraepitheleal eosinophils. C. Gastroesophageal junction: inflamed squamocolumnar junctional mucosa, negative for intestinal metaplasia and dysplasia. D. Esophagus,mid: squamos mucosa with mild reactive changes, no increase in intraepithelial esoinophils. H/O colonoscopy (~01/2024) 06/13/13 - Dr Mendoza - tubular adenoma x 2 11/01/18- 1 polyp EGD - IV Sedation (02/20/10) Colonoscopy - IV Sedation (02/20/10) Appendectomy ABDOMINAL- RUPTURED OVARIAN CYST Family History Father Essential hypertension Coronary artery disease Neoplasm Bladder Sister Neoplasm Breast Mother , 02/09/22 Cancer Lung cancer Sister Neoplasm Thyroid Brother Heart murmur Maternal Grandmother Coronary artery disease Paternal Grandmother Neoplasm Rectal Social History Smoking/Tobacco Use Status: Never Smoking risk assessment performed?: Yes Alcohol Intake: never Drug use: Never Substance use type: does not use Adopted: No Caregiver/Support person: No Foster care: No Household members: spouse Housing: house Number of Children: 2 number of grandchildren: 3 Communication Needs: Corrective Lenses Education Level: high school Do you need help understanding health information?: Never current occupation: Retired Pets and animals: Yes (4) Pets and animals: dog(s) Sexually active: No Do you think of yourself as: straight/heterosexual Current gender identity: female What is your relationship status?: How often do you talk on the phone with friends or family?: twice per week How often do you get together with friends or relatives?: twice per week How often do you attend moravian or hindu services?: 4 or more times per year Do you belong to any clubs or organized social groups?: no Panel score (0-1 are the most socially isolated patients): 3 What type of physical activity do you participate in: other Details: Stacking wood Duration: 15-30 minutes/day Frequency: 3-4 times per week Betzy/Latter Day: Congregational Agree to transfusion: Yes Seatbelt use: always Helmet use: Yes Drive intox or ride w/intox school bus driver/teacher assistant: No Do you feel safe at home: Yes Do you feel safe in your relationship?: Yes Meds Allergies and Home Medications Allergies Allergy/AdvReac Type Severity Reaction Status Date / Time loratadine (From Claritin) Allergy Severe Hives Verified 07/25/24 12:06 tomato (Tomato) Allergy Severe Hives Verified 07/25/24 12:06 gluten Allergy self Verified 07/25/24 12:06 reported lactose Allergy Other (See Verified 07/25/24 12:06 Comment) fluticasone AdvReac Other (See Verified 07/25/24 12:06 Comment) prednisone AdvReac Racing Verified 07/25/24 12:06 heart, heavy legs Home Medications ?Medication ?Instructions ?Recorded ?Confirmed ?Type diphenhydramine HCl 25 mg capsule 25 mg PO PRN 11/20/17 07/25/24 History (Benadryl) acetaminophen 650 mg See Rx Instructions PO Q12H PRN 07/31/22 07/25/24 History tablet,extended release pain [id number] 18 mg-FA 400 1 tab PO DAILY 11/19/22 07/25/24 History mcg-calcium 500 mg-vit K 50 mcg tablet (Women's Multivitamin) turmeric root extract 500 mg 1,000 mg PO DAILY 11/19/22 07/25/24 History capsule calcium carbonate (Calcium 600) 600 mg PO DAILY 01/14/24 07/25/24 History Exam Narrative Exam Narrative: General: Nontoxic, comfortable and interactive Neuro: Alert and oriented x 3 Psych: Excellent mood and affect, good insight and understanding into her conditions and procedures Chest: Nonlabored breathing, no wheezing and no shortness of breath Heart: Regular Time Spent Time spent with Patient: <40 minutes Time was spent: preparing to see the patient(eg.review tests), obtaining and/or reviewing separately otained hiistory, ordering medications,tests, procedures, referring, communicating with other health child care supervisor, indepentently interpreting results, counseling the patient, care coordination and other
[2024-07-26] VITALS (84 sets, daily range): BP systolic 84–140; BP diastolic 37–97; PULSE 57–104; RESP 10–23; TEMP 35.1–36.7; O2SAT 91–100; BMI 27.4
[2024-07-26] MEDS: Acetaminophen 500 MG TAB 1000 MG PO (06:49)
[2024-07-26] MEDS: Lactated Ringers 1,000 ML 75 ML IV ×2 (06:49→19:43)
[2024-07-26] MEDS: Heparin 5,000 UNITS/ML VIAL 5000 UNITS SC ×3 (06:49→23:04)
--- NOTE | 2024-07-26 06:49 | W.ANESPRE ---
General Info Date of Service Date Performed: 07/26/24 Height: 5 ft Weight: 63.7 kg Body Mass Index (BMI): 27.4 Surgical Procedure: Operation Date: 07/26/24 07:30 Proposed Procedure Side Surgeon p Hernia Paraesophageal Laparoscopic w/Mesh Jax Fowler MD Meds Allergies and Home Medications Allergies Allergy/AdvReac Type Severity Reaction Status Date / Time loratadine (From Claritin) Allergy Severe Hives Verified 07/26/24 06:42 tomato (Tomato) Allergy Severe Hives Verified 07/26/24 06:42 gluten Allergy self Verified 07/26/24 06:42 reported lactose Allergy Other (See Verified 07/26/24 06:42 Comment) fluticasone AdvReac Other (See Verified 07/26/24 06:42 Comment) prednisone AdvReac Racing Verified 07/26/24 06:42 heart, heavy legs Home Medication ?Medication ?Instructions ?Recorded diphenhydramine HCl 25 mg capsule 25 mg PO PRN 11/20/17 (Benadryl) acetaminophen 650 mg See Rx Instructions PO Q12H PRN 07/31/22 tablet,extended release pain [id number] 18 mg-FA 400 1 tab PO DAILY 11/19/22 mcg-calcium 500 mg-vit K 50 mcg tablet (Women's Multivitamin) turmeric root extract 500 mg 1,000 mg PO DAILY 11/19/22 capsule calcium carbonate (Calcium 600) 600 mg PO DAILY 01/14/24 Current Visit Medications: Current Medications Generic Name Dose Route Start Last Admin Trade Name Freq PRN Reason Stop Dose Admin Acetaminophen 1,000 mg 07/26/24 06:00 Acetaminophen 500 Mg Tab PO 07/26/24 23:59 PREOP [facility] Heparin Sodium (Porcine) 5,000 units 07/26/24 06:00 Heparin 5,000 Units/Ml Vial SC 07/26/24 23:59 DIRECTED DESHAWN Ringer's Solution 1,000 mls @ 75 mls/hr 07/26/24 06:00 IV 07/26/24 23:59 INFUSION [facility] IV Miscellaneous Supplies 1 each 07/26/24 06:00 Iv Access IV 07/26/24 23:59 DIRECTED DESHAWN Sodium Chloride 0 ml 07/26/24 06:00 Normal Saline Flush 10 Ml Syr IV 07/26/24 23:59 PRN PRN Sodium Chloride 0 ml 07/26/24 06:00 Normal Saline 10 Ml Vial IJ 07/26/24 23:59 DIRECTED PRN Sterile Water 0 ml 07/26/24 06:00 Water,Injection,Sterile 10 Ml Vial IJ 07/26/24 23:59 DIRECTED PRN PFSH Active Problems Active Problems: Problem Status Onset Code GERD (gastroesophageal reflux disease) Chronic K21.9 Adenomatous polyps Acute D36.9 Nevus Acute D22.9 Asymmetrical sensorineural hearing loss Acute H90.3 Osteoporosis Chronic M81.0 Chronic kidney disease Chronic N18.9 History of gluten sensitivity Acute History of colon polyps Acute Z86.010 Hiatal hernia Chronic Gastroesophageal reflux disease with esophagitis Chronic 04/23/17 K21.0 Hyperlipidemia Chronic 07/08/17 E78.5 Irritable bowel syndrome Chronic 05/07/17 K58.9 Stenotic cervical os Chronic 11/20/17 N88.2 Dysphagia Acute 04/23/17 R13.10 Medical History Medical History COVID (~07/2021) Diverticulosis of large intestine without hemorrhage (04/23/17) Herpes zoster (04/23/17) Tubular adenoma (04/23/17) Foot joint pain Dry eye Dysphagia Surgical History Surgical History History of esophagogastroduodenoscopy (EGD) 02/02/24- w/ biposy. final dx: A. Stomach, Antrum:antral mucosa with mild reactive gastropathy changes. H.Pylori stain is negative. B. Esophagus,Distal: squamos mucosa with mild reactive changes, no increase in intraepitheleal eosinophils. C. Gastroesophageal junction: inflamed squamocolumnar junctional mucosa, negative for intestinal metaplasia and dysplasia. D. Esophagus,mid: squamos mucosa with mild reactive changes, no increase in intraepithelial esoinophils. H/O colonoscopy (~01/2024) 06/13/13 - Dr Mendoza - tubular adenoma x 2 11/01/18- 1 polyp EGD - IV Sedation (02/20/10) Colonoscopy - IV Sedation (02/20/10) Appendectomy ABDOMINAL- RUPTURED OVARIAN CYST Tobacco Smoking/Tobacco Use Status: Never Passive smoking exposure: No Alcohol Alcohol Intake: never Substance Use Substance use: Never Substance use type: does not use Vital Signs and Lab Results Vital Signs Most Recent Vital Signs in EMR: Most Recent Vital Signs Temp Pulse Resp BP Pulse Ox 36.7 C 73 16 132/73 99 07/26/24 06:44 07/26/24 06:44 07/26/24 06:44 07/26/24 06:44 07/26/24 06:44 Lab Results Blood Type / Crossmatch: No Data to Display Complete Blood Count: No Data to Display Complete Metabolic Panel: No Data to Display Liver Function Panel: No Data to Display Coagulation Panel: No Data to Display Cardiac Panel: No Data to Display Arterial Blood Gas: No Data to Display Venous Blood Gas: No Data to Display Pancreas Panel: No Data to Display Thyroid Panel: No Data to Display Infectious Disease: No Data to Display Blood Cultures: No Data to Display Toxicology Panel: No Data to Display Anesthesia Assessment and Plan Anesthesia History Personal History: No History of Anesthesia Complications Family History: No Family History of Anesthesia Complications Exercise Tolerance Exercise Tolerance: Metabolic Equivalents>4 Pertinent Negatives Pertinent Negatives: No Major Cardiovascular Symptoms or Complaints and No Major Pulmonary Symptoms or Complaints Cardiac & Pulmonary Exam Cardiac Exam: Normal S1/S2 Heart Sounds Pulmonary Exam: Clear Bilateral Breath Sounds Implantable Cardiac Device Does patient have a Pacemaker or an ICD?: No Airway Exam Known Difficult Airway: No Mallampati Class: 1 Mouth Opening: Normal (> 3cm) Thyromental Distance: Greater than 3 cm Neck Range of Motion: Full ROM Neck Circumference: Normal Teeth Condition: Removable Dentures/Plates Upper ASA Classification ASA Score: ASA 2 Emergency Case?: No NPO Status NPO Status: NPO Clears >2 hours, Solids >8 hours Anesthesia Plan Resuscitation Status: Full Code Anesthesia Technique: General Anesthesia Airway Planned: Endotracheal Tube Pain Management: Surgeon and patient request nerve block Monitors Used: Standard Monitors Preoperative Comments:: Requesting Opioid free anesthetic. Bilateral ES block
--- NOTE | 2024-07-26 06:52 | W.PM.OP ---
Date of service: 07/26/24 Time of Service: 10:40 Operative Note Operative Note Refer to Anesthesia Record Procedure Description: Procedures: 1. Laparoscopic hiatal hernia repair with Phasix ST mesh 2. Laparoscopic Bradford fundoplication Preoperative Diagnosis: symptomatic type I sliding hiatal hernia, GERD Postoperative Diagnosis: Same Surgeon: Jaquan Fowler Assist: Catherine Anesthesia: General Anesthesiologist: Homer Indication: Symptomatic type 1 hiatal hernia (3cm slide, Hill Grade 2 defect). Normal manometry. Findings: A moderate-size type I hiatal hernia was present and repaired with suture repair primarily at the misha and then buttressed with a Phasix ST mesh. A 360 degree Bradford fundoplication was performed over a 56 spanish bougie. Complications: None Estimated Blood Loss: Minimal Specimens removed: None Grafts or implants: Phasix ST mesh Procedure in detail: Written consent was obtained from the patient who was in agreement the risks, the benefits and indications for the procedure. The patient was taken to the operating suite and laid supine on the operating table with arms outstretched. General anesthesia was administered which was tolerated very well. Anesthesia performed an ultrasound?guided local block. We placed her in lithotomy. Next we prepped and draped the abdomen in sterile fashion. A timeout was performed. When we were all in agreement we began the procedure. Just to the left of the bellybutton a small stab incision was made and a 5 mm Optiview trocar was used to enter into the abdomen under direct visualization. Four-quadrant diagnostic laparoscopy was performed and was grossly within normal limits. The liver was inspected and did not appear cirrhotic. 3 more trochars were placed across the abdomen under visualization. The 12 mm working port was placed in the mid clavicular line on the left side. A Tahir liver retractor was used to retract the liver anteriorly and was placed in the epigastric location through a 5 mm defect. The patient was placed in steep reverse Trendelenburg and we had good visualization of the hiatus. A short segment of short gastrics were tightly adhered against the spleen and I took these down with the LigaSure effectively releasing the stomach fundus away from spleen and off of the diaphragm and misha edges. Going superior from there, I then found the left misha of the diaphragm and incised the peritoneum overlying it from posterior circumferentially up to the anterior portion of the esophagus. The anterior(left) vagus nerve was visualized against the esophagus. I then turned my attention to opening pars flaccida and took down the attachments leading up to the right misha which was easily identified and again peritoneum was opened over top of this. I then ensured that all the peritoneum edges on the posterior aspect were divided(no hernia sac remaining). The posterior(right) vagus nerve was also easily identified and was bluntly and gently swept away from the dissection planes by keeping it close to the esophagus. I was able to circumferentially clear the esophagus at the level of the hiatus and passed a [place] drain around this for retraction leading into the mediastinal dissection. Next, a combination of blunt dissection as well as dissection with the LigaSure was performed to mobilize the esophagus within the mediastinum taking care to dissect very high into the mediastinum to facilitate excellent mobilization. This was achieved and we had complete mobilization without any significant difficulty. Satisfied with circumferential dissection within the mediastinum and the mobilization of the esophagus, I verified that I had about 3 cm of esophagus intra-abdominal. Further, this stayed intra-abdominal without any retraction or tension. At this point I closed the left and right crura primarily using an Endo Stitch with interrupted sutures. This facilitated a nice closure that did not have any tension and I ensured that it was not too tight around the esophagus. Next I fixated the Phasix ST mesh (that I had pre-cut to size on the back table) in place with a single suture on each side of it through the left and right crura individually and a stitch through the crural closure in the center. At this point anesthesia advanced a 56 Swedish bougie gently down the esophagus while we watched with the laparoscope. The crural closure was not too tight. I was able to grab the fundus of the stomach and bring it around behind the esophagus without any tension or difficulty. I had excellent mobilization and I was able to get the fundus completely wrapped around the esophagus and GE junction over top of the 56 Swedish bougie and no tension was noted. I then used 2-0 silk sutures and sutured about 2cm of fundus to fundus, thus completing the 360 degree wrap around the esophagus. I ensured that it was loose and floppy and not tight. I placed the superior two stitches partial-thickness through the esophagus to prevent the wrap from moving up or down at the GE junction. Hemostasis was excellent, the wrap lay very nicely and had no tension anywhere. All the needles were removed. The Tahir retractor was removed. Hemostasis was again verified to be excellent. The 12 mm port site was closed with 0 Vicryl using a Ronan Jose. All trochars were removed under visualization and the pneumoperitoneum was evacuated. I closed the skin with running Monocryl and placed skin glue over top of the wounds. The sponge, instrument and sharps counts were correct x3 at the end of the procedure. The patient tolerated the procedure well and was taken to the PACU in hemodynamically stable condition.
[2024-07-26] MEDS: Bupivacaine 0.25% Pres-Free W/EPI 30 ML VIAL (08:48)
--- NOTE | 2024-07-26 09:00 | W.ANESNERVE ---
Nerve Block Single Injection Procedure Date and Time Date Performed: 07/26/24 Procedure Start: 07:58 Location Where Procedure Performed Procedure Location: Operating Room Procedure Stop: 08:12 Reason Performed: Postoperative Analgesia Requesting Provider: Jax Fowler Timeout Performed Timeout Performed: Yes Monitoring Used ECG, Blood Pressure and SpO2 Sterility Sterility: Hand Hygiene, Surgical Cap, Surgical Mask, Sterile Gloves and Chlorhexidine Sedation Given During Procedure Sedation Given (Indicate Dose Given): Versed IV Dose:: 2 mg (also noted on intraoperative record) Patient Mental Status Patient Mental Status: Sedate with meaningful communication Nerve Block 1st Nerve Block: Laterality: Bilateral Block Type: Erector Spinae (Upper) (T7) Ultrasound Image Saved?: Yes Needle / Catheter Used: 100mm SonoPlex II Local Anesthetic Bolus (Indicate Dose Given): Lidocaine used for local infiltration of skin, Injected in 3-5ml increments after negative blood aspiration, Half of Total block solution given into each side, Bupivacaine 0.25% Dose:: 20 ml and Exparel Dose:: 20 ml Additives (Indicate Dose Given): Normal Saline (For hydrodissection) Ultrasound: Sterile probe cover and gel used Nerve Stimulator: Not Used Paresthesia: None Procedure Tolerated: No Complications and Patient tolerated well Procedure Outcome: Successful Performed By: Alan Lewis
[2024-07-26] MEDS: ePHEDrine 25 MG/5 ML Syringe IVP ×2 (11:07→11:24)
[2024-07-26] MEDS: fentaNYL 100 MCG/2 ML VIAL IVP ×2 (11:36→12:45)
[2024-07-26] MEDS: ACETAMINOPHEN 1,000 MG/100 ML BTL 400 MG IVPB ×2 (12:27→19:44)
--- NOTE | 2024-07-26 13:37 | W.ANESPOSTOP ---
Postoperative Evaluation Date, Time and Location Date Performed: 07/26/24 Time Performed: 13:37 Patient Location: PACU Vital Signs Most Recent Imported Vital Signs: Most Recent Vital Signs Temp Pulse Resp BP Pulse Ox 36.2 C L 60 13 113/53 L 96 07/26/24 13:20 07/26/24 13:20 07/26/24 13:20 07/26/24 13:20 07/26/24 13:20 Pain Score Most Recent Pain Score: Most Recent Pain Score Pain Level 6 07/26/24 12:35 Assessment Mental Status: Awake (Alert & Oriented to Patient Baseline) Airway and Respiratory Function: Patent airway with normal (patient baseline) respiratory exam Cardiovascular Function: Hemodynamically Stable Hydration Status: Adequately Hydrated Nausea & Vomiting: No Nausea or Vomiting Pain: Pain is Moderate or Severe Postoperative Pain Management: Ongoing pain, patient will be managed as an inpatient Peripheral Nerve Block: Regional nerve block not resolved at time of post operative discharge
--- NOTE | 2024-07-26 15:54 | NUR.NOTE ---
Nursing Note:Nursing district supervisor, charge nurse, and myself discussing pain management for post op pt in acute 10 pain. MD will not write for additional medications.
--- NOTE | 2024-07-26 16:05 | NUR.NOTE ---
Nursing Note: Discussion with MD via telephone. MD refuses to order and narcotic pain medications for post op pain control.
[2024-07-26] MEDS: Ketorolac 30 MG/ML VIAL IVP (16:34)
--- NOTE | 2024-07-26 16:37 | NUR.NOTE ---
Nursing Note: Patient has heparin ordered. 1st dose done off pre op PTT. Charge nurse called for PTT orders for heparin administration. refuses to order labs.
[2024-07-26] MEDS: Ondansetron 4 MG/2 ML VIAL IVP (17:52)
[2024-07-26] MEDS: Normal Saline Flush 10 ML SYR IV ×2 (17:52→19:45)
[2024-07-27] MEDS: ACETAMINOPHEN 1,000 MG/100 ML BTL 400 MG IVPB ×2 (01:17→06:48)
[2024-07-27] MEDS: Heparin 5,000 UNITS/ML VIAL 5000 UNITS SC (06:45)
[2024-07-27 08:08] VITALS: BP 111/55; PULSE 80; RESP 17; TEMP 37.2; O2SAT 97
--- NOTE | 2024-07-27 08:08 | DSE_ITS ---
Date of service: 07/27/24 Time of Service: 08:08 DS: Diagnosis Discharge Diagnosis (1) Hiatal hernia: Status: Chronic Asessment and Plan: 68-year-old woman postop day 1 from laparoscopic hiatal hernia repair with Bradford fundoplication. She is hemodynamically stable and doing very well. No dysphagia. She is ready for discharge home. Discharge Plan Disposition Patient Disposition: Home Condition: Good Condition: Good Discharge Details Reason For Visit: Hiatal Hernia Admit Date/Time: 07/26/24 06:24 Admit Provider: Jax Fowler Attending Provider: Jax Fowler Primary Care Provider: Vero Mott Home Meds and New Rx's Prescriptions: No Action acetaminophen 650 mg tablet extended release See Rx Instructions PO Q12H PRN (Reason: pain) Rx Instructions: 1-2 tabs orally every 12 hours PRN; calcium carbonate [Calcium 600] 600 mg calcium (1,500 mg) tablet 600 mg PO DAILY Women's Multivitamin 18 mg-400 mcg- 500 mg-50 mcg tablet 1 tab PO DAILY turmeric root extract 500 mg capsule 1,000 mg PO DAILY diphenhydramine HCl [Benadryl] 25 MG capsule 25 mg PO PRN Discharge Instructions Additional Instructions: Incisions: Keep clean and dry but they do not need to be covered. It is okay to shower but no tub bathing for 1 week. You can peel the glue off after 1 week. Activity: No heavy lifting, strenuous activity or pushing or pulling for 8 weeks. You can otherwise stay active and should walk at least 45-60 minutes a day. Diet: Pur?ed/liquid food for the next 2 weeks. After that slowly reintroduce a regular diet as tolerated. Medications: Resume all of your usual/regular home medications. You can stop your antacid medicine and no longer need to take it. Follow-up: Call and schedule follow-up to be seen in the next 2-4 weeks. Pain control: Take Tylenol, 1000 mg, every 6 hours on a schedule for the next 3 days. You can use ibuprofen in addition to Tylenol and use the narcotic medication only as necessary for pain preventing you from sleeping. Overall: Call if you have any concerns. Activity:: Activity as Tolerated Equipment/Supplies:: No Equipment Needed Diet:: Pureed DS: Summary Time Spent with Patient providing and/or coordinating discharge services: Less than 30 minutes Status at Discharge Functional status at discharge: independent ambulation Overall status at discharge: patient is back to baseline Mental Status: mental status grossly normal Speech and Movement: speech and movement normal Mood: congruent mood Affect: normal affect Quality:SDOH Health Related Social Needs: No Data to Display Exam Narrative Exam Narrative: General: Nontoxic, comfortable and interactive Neuro: Alert and oriented x 3 Psych: Good mood and affect, good insight and understanding into her condition Heart: Regular Chest: Nonlabored breathing and no wheezing. Abdomen: Soft, nondistended, appropriately tender. Incisions look perfect. Glue is intact. Psych Mental Status: mental status grossly normal Speech and Movement: speech and movement normal Mood: congruent mood Affect: normal affect DS: Data Vitals/I&O Vitals and I&O: Vital Signs Temperature 97.9 F 07/26/24 23:43 Temperature Source Tympanic 07/26/24 23:43 Pulse 81 07/26/24 23:43 Pulse Rhythm Regular 07/27/24 03:45 Pulse 67 07/26/24 13:46 Respiratory Rate 16 07/26/24 23:43 Respiratory Effort Normal, Non-Labored 07/27/24 03:45 Respiratory Depth Shallow 07/27/24 03:45 Respiratory Pattern Normal 07/27/24 03:45 Blood Pressure 126/66 07/26/24 23:43 Blood Pressure Mean 82 07/26/24 13:50 Pulse Oximetry 97 07/26/24 23:43 Respiratory End-tidal CO2 18 07/26/24 11:35 Oxygen Delivery Method Room Air 07/26/24 23:43 Oxygen Flow Rate 0 07/26/24 23:43 Pain Level 4 07/27/24 06:48 Comment pain currently 09/0807/26/24 14:00 Comment PT ARRIVED IN PACU. 07/26/24 10:59 Intake & Output 07/26/24 07/26/24 07/27/24 11:59 23:59 11:59 Intake Total 600 / 1200 600 / 1200 518.75 / 518.75 Output Total 900 / 910 300 / 300 Balance 590 / 290 -300 / 290 218.75 / 218.75 Weight 140 lb 6.951 oz Intake: IV 600 / 1200 600 / 1200 518.75 / 518.75 Output: Urine 900 / 900 300 / 300 Estimated Blood Loss Other: Urine Color Yellow Yellow Urine Appearance Clear Clear Urine Odor Normal Comment standby assist. toilet insert x1 assist up to commode Emesis Description None None Voiding Methods Bedside Commode Bedside Commode PFSH All Active Problems GERD (gastroesophageal reflux disease) (Chronic) Adenomatous polyps (Acute) Nevus (Acute) Asymmetrical sensorineural hearing loss (Acute) Osteoporosis (Chronic) 10/03/2022 DEXA: femoral neck T-score Chronic kidney disease (Chronic) History of gluten sensitivity (Acute) Pt reports she took a test via home kit and it told her she had gluten allergy History of colon polyps (Acute) Hiatal hernia (Chronic) Gastroesophageal reflux disease with esophagitis (Chronic 04/23/17) Hyperlipidemia (Chronic 07/08/17) 06/2017 labwork: 10-year ASCVD risk = 4.2% --> no statin indicated at this time Irritable bowel syndrome (Chronic 05/07/17) 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 final dx: A. Stomach, Antrum:antral mucosa with mild reactive gastropathy changes. H.Pylori stain is negative. B. Esophagus,Distal: squamos mucosa with mild reactive changes, no increase in intraepitheleal eosinophils. C. Gastroesophageal junction: inflamed squamocolumnar junctional mucosa, negative for intestinal metaplasia and dysplasia. D. Esophagus,mid: squamos mucosa with mild reactive changes, no increase in intraepithelial esoinophils. H/O colonoscopy (~01/2024) 06/13/13 - Dr Mendoza - tubular adenoma x 2 11/01/18- 1 polyp EGD - IV Sedation (02/20/10) Colonoscopy - IV Sedation (02/20/10) Appendectomy ABDOMINAL- RUPTURED OVARIAN CYST Family History Father Essential hypertension Coronary artery disease Neoplasm Bladder Sister Neoplasm Breast Mother , 02/09/22 Cancer Lung cancer Sister Neoplasm Thyroid Brother Heart murmur Maternal Grandmother Coronary artery disease Paternal Grandmother Neoplasm Rectal Social History Smoking/Tobacco Use Status: Never Smoking risk assessment performed?: Yes Alcohol Intake: never Drug use: Never Substance use type: does not use Adopted: No Caregiver/Support person: No Foster care: No Household members: spouse Housing: house Number of Children: 2 number of grandchildren: 3 Communication Needs: Corrective Lenses Education Level: high school Do you need help understanding health information?: Never current occupation: Retired Pets and animals: Yes (4) Pets and animals: dog(s) Sexually active: No Do you think of yourself as: straight/heterosexual Current gender identity: female What is your relationship status?: How often do you talk on the phone with friends or family?: twice per week How often do you get together with friends or relatives?: twice per week How often do you attend faith or oriental orthodox services?: 4 or more times per year Do you belong to any clubs or organized social groups?: no Panel score (0-1 are the most socially isolated patients): 3 What type of physical activity do you participate in: other Details: Stacking wood Duration: 15-30 minutes/day Frequency: 3-4 times per week Betzy/Alevism: Jehovah'S Witness Agree to transfusion: Yes Seatbelt use: always Helmet use: Yes Drive intox or ride w/intox fuel truck driver: No Do you feel safe at home: Yes Do you feel safe in your relationship?: Yes Time Spent with Patient Time Spent with Patient: <45 minutes Time was spent: preparing to see the patient(eg.review tests), obtaining and/or reviewing separately otained hiistory, ordering medications,tests, procedures, indepentently interpreting results, counseling the patient, care coordination and other
[2024-07-27] MEDS: Multivitamin TAB 1 TAB PO (09:36)
--- NOTE | 2024-07-28 10:40 | PDOC.CMPRO ---
Date of service: 07/27/24 Time of Service: 09:00 Care Management Progress Note Progress Note Text Progress Note Text: Melina was admitted for repair of a hiatal hernia. The procedure went well and her recovery was uneventful. She was discharged home with no new services and will follow up with her surgeon, PCP and plan of care. She will transport with family.
== END 2024-07-27 10:44 | disposition home or self-care (01) ==
LOC: MS 14:07 → PDS 14:08
PROVIDERS: Admitting Provider Student in an Organized Health Care Education/Training Program; PCP Nurse Practitioner; Visit Provider Student in an Organized Health Care Education/Training Program
PROC: 0BUT4JZ Supplement Diaphragm with Synthetic Substitute, Percutaneous Endoscopic Approach (ICD-10-PCS; CPT 43282; principal; 2024-07-26 07:30)
DX: K44.9 Diaphragmatic hernia without obstruction or gangrene (principal); K21.9 Gastro-esophageal reflux disease without esophagitis; N18.9 Chronic kidney disease, unspecified; K58.9 Irritable bowel syndrome, unspecified; M81.0 Age-related osteoporosis without current pathological fracture
CPT/HCPCS: 43280; 00123; 76942; 96365; 96366; 96372; 96375; 99222; C1781; C9290; G0378; J0131; J0665; J1100; J1644; J1805; J1885; J2001; J2250; J2371; J2405; J2704; J3010; J3475

== ENCOUNTER → 2024-08-10 09:17 | Outpatient (BNVA) | payer MEDICARE, SELFPAY | PROVIDERS: PCP Nurse Practitioner; Referring Provider Nurse Practitioner; Visit Provider Student in an Organized Health Care Education/Training Program | DX: Z48.817 Encounter for surgical aftercare following surgery on the skin and subcutaneous tissue (principal) ==

== ENCOUNTER 2024-09-13 02:24 | Outpatient (CLI) | payer MEDICARE, SELFPAY ==
[2024-09-13 08:07] LABS: ALT 17 U/L (14-59); AST 13 U/L (15-37); Albumin 3.6 g/dL (3.4-5.0); Alkaline Phosphatase 87 U/L (46-116); Anion Gap 9.7 mmol/L (3-11); BUN 14 mg/dL (7-18); Bilirubin, Total 0.59 mg/dL (0.2-1.0); CO2 26.3 mmol/L (21.0-32.0); CREATININE 1.2 mg/dL (0.55-1.02); Calcium 9.4 mg/dL (8.5-10.1); Calculated LDL 146 mg/dL (<100); Chloride 109 mmol/L (98-107); Cholesterol 217 mg/dL (<200); Estimated GFR 48.39 (mL/min/1.73m2); Glucose 87 mg/dL (74-106); HDL Cholesterol 50 mg/dL (40-60); Potassium 3.6 mmol/L (3.5-5.1); Sodium 145 mmol/L (136-145); Triglyceride 108 mg/dL (<150)
== END 2024-09-13 02:25 | disposition home or self-care (01) ==
LOC: LBO 02:24
PROVIDERS: Absent Provider Nurse Practitioner; PCP Nurse Practitioner; Referring Provider Nurse Practitioner; Visit Provider Nurse Practitioner
DX: N18.9 Chronic kidney disease, unspecified (principal); E78.5 Hyperlipidemia, unspecified
CPT/HCPCS: 36415; 80053; 80061

== ENCOUNTER 2024-10-07 00:38 | Outpatient (CLI) | payer MEDICARE, SELFPAY ==
--- NOTE | 2024-10-07 07:15 | DI.MAMMO_ITS ---
Exam(s) MAMMO SCREENING EXAM: MAMMO SCREENING CLINICAL HISTORY: screening,Z12.39 TECHNIQUE: Bilateral full field digital CC and MLO mammographic images were obtained with 3D tomosyn thesis and utilizing computer aided detection (CAD). COMPARISON: Available for comparison. FINDINGS: Masses/Architectural Distortion: None seen. Microcalcifications: No suspicious pleomorphic-type are seen. Skin Thickening/Nipple Retraction: None. IMPRESSION: 1. No significant interval change with no specific features of malignancy noted. 2. Unless there is more urgent need, screening mammography is recommended, as per [employer] guidelines. BI-RADS Category 1 - Negative Breast Density - Category B - Scattered areas of fibroglandular density Breast density category C or D implies that the patient has dense breast tissue. Dense breast tissue is very common and is not abnormal but dense breast tissue can make it harder to find cancer on a ma mmogram. Also, dense breast tissue may increase their breast cancer risk. This information about the result of the mammogram report was provided to the patient to raise their awareness. Use this report when you speak with the patient about their risks for breast cancer, which includes their family hist ory. At that time, you may recommend for more screening tests (Ultrasound or MRI) as they might be us eful based on their risk. A negative radiographic report should not delay biopsy if a dominant or clinically suspicious mass is present. Up to ten percent of cancers are not identified on mammography. A negative report may reinforce clinical impression. Adenosis and dense breasts may obscure an underlying neoplasm. False positive reports average 6 to 10%. Patient will receive a letter notifying them of these results.
== END 2024-10-07 00:58 ==
LOC: DI 00:38
PROVIDERS: PCP Nurse Practitioner; Visit Provider Nurse Practitioner
DX: Z12.31 Encounter for screening mammogram for malignant neoplasm of breast (principal); R92.323 Mammographic fibroglandular density, bilateral breasts
CPT/HCPCS: 77063; 77067

== ENCOUNTER 2025-09-01 09:43 | Outpatient (CLI) | payer MEDICARE, SELFPAY ==
[2025-09-01 10:03] LABS: Abs Immature Grans 0.03 10^3/uL (0.0-0.06); HCT 45.0 % (36.0-46.0); HGB 14.8 g/dL (11.2-15.7); Immature Grans % 0.3 %; MCH 31.0 pg (27.0-33.0); MCHC 32.9 % (32.0-36.0); MCV 94 fL (80-95); MPV 9.6 fL (8.0-11.0); Platelet Count 204 10^3/uL (130-400); RBC 4.78 10^6/uL (3.93-5.22); RDW 12.7 % (11.7-14.6); RDW-SD 43.6 fL; WBC 9.48 10^3/uL (4.4-10.8)
[2025-09-01 10:25] LABS: Hemoglobin A1C 5.1 % (<5.7)
[2025-09-01 10:37] LABS: RBC Morphology Normal
[2025-09-01 10:43] LABS: ALT 24 U/L (14-59); AST 23 U/L (15-37); Albumin 3.7 g/dL (3.4-5.0); Alkaline Phosphatase 105 U/L (46-116); Anion Gap 8.3 mmol/L (3-11); BUN 18 mg/dL (7-18); Bilirubin, Total 0.5 mg/dL (0.2-1.0); CO2 26.7 mmol/L (21.0-32.0); Calcium 9.0 mg/dL (8.5-10.1); Calculated LDL 129 mg/dL (<100); Chloride 107 mmol/L (98-107); Cholesterol 204 mg/dL (<200); Estimated GFR 53.72 (mL/min/1.73m2); Glucose 80 mg/dL (74-106); HDL Cholesterol 58 mg/dL (>or=50); Potassium 4.2 mmol/L (3.5-5.1); Sodium 142 mmol/L (136-145); TSH 1.50 uIU/mL (0.36-3.74); Total Protein 7.3 g/dL (6.4-8.2); Triglyceride 86 mg/dL (<150)
== END 2025-09-01 09:44 | disposition home or self-care (01) ==
LOC: LBO 09:43
PROVIDERS: PCP Nurse Practitioner; Visit Provider Family Medicine
DX: R53.83 Other fatigue (principal); E78.5 Hyperlipidemia, unspecified; Z13.9 Encounter for screening, unspecified; Z13.1 Encounter for screening for diabetes mellitus
CPT/HCPCS: 36415; 80053; 80061; 81003; 83036; 84443; 85025

== ENCOUNTER 2025-09-07 12:52 | Outpatient (REF) | payer MEDICARE, SELFPAY ==
[2025-09-07 13:32] LABS: Glucose Negative (Negative)
== END 2025-09-07 12:53 | disposition home or self-care (01) ==
LOC: LBN 12:52
PROVIDERS: PCP Nurse Practitioner; Visit Provider Family Medicine
DX: Z13.9 Encounter for screening, unspecified (principal)
CPT/HCPCS: 81003

== ENCOUNTER 2025-09-18 11:48 | Outpatient (CLI) | payer MEDICARE, SELFPAY ==
[2025-09-20 10:15] LABS: Hepatitis C Ab w Rflx HCV PCR Negative (Negative)
== END 2025-09-18 11:49 | disposition home or self-care (01) ==
LOC: LBO 11:53
PROVIDERS: PCP Nurse Practitioner; Visit Provider Obstetrics & Gynecology
DX: Z20.2 Contact with and (suspected) exposure to infections with a predominantly sexual mode of transmission (principal)
CPT/HCPCS: 36415; 86803

== ENCOUNTER 2025-09-18 12:23 | Outpatient (REF) | payer MEDICARE, SELFPAY | END 2025-09-18 12:24 | disposition home or self-care (01) | LOC: LBN 12:23 | PROVIDERS: PCP Nurse Practitioner; Visit Provider Obstetrics & Gynecology | DX: Z12.4 Encounter for screening for malignant neoplasm of cervix (principal) | CPT/HCPCS: 88142; 87624 ==

== ENCOUNTER → 2025-10-12 02:28 | Outpatient (CLI) | payer MEDICARE, SELFPAY ==
--- NOTE | 2025-10-12 07:45 | DI.MAMMO_ITS ---
Exam(s) MAMMO SCREENING EXAM: MAMMO SCREENING CLINICAL HISTORY: screening,z12.39. TECHNIQUE: Bilateral full field digital CC and MLO mammographic images were obtained with 3D tomosynthesis and utilizing computer aided detection (CAD). COMPARISON: Prior mammograms were reviewed. FINDINGS: Benign-appearing lobulated density anteriorly in the right breast slightly medial of center is unchanged at least 2017 and therefore benign. Small benign-appearing nodule medially in the left breast is also unchanged from 2017 and therefore benign. There are no new spiculated masses nor new malignant appearing microcalcification groups. There is no significant architectural distortion nor skin thickening-retraction. IMPRESSION: Stable benign findings. No radiographic evidence of malignancy. BI-RADS Category 2 - Benign Findings Breast Density - Category B - There are scattered areas of fibroglandular density. Breast density Category C or D implies that the patient has dense breast tissue. Dense breast tissue can make it harder to find cancer on a mammogram. Dense breast tissue is also associated with an increased risk of breast cancer. This information about the result of the mammogram report was provided to the patient to raise their awareness. Use this report when you speak with the patient about their risks for breast cancer, which includes their family history. At that time, you may recommend additional screening tests (Ultrasound or MRI) as these tests may add significant information. A negative radiographic report should not delay biopsy if a dominant or clinically suspicious mass is present. Up to ten percent of cancers are not identified on mammography. A negative report may reinforce clinical impression. Adenosis and dense breasts may obscure an underlying neoplasm. False positive reports average 6 to 10%. Patient will receive a letter notifying them of these results.
--- NOTE | 2025-10-12 11:35 | DI.DEXA_ITS ---
Exam(s) XR DEXA BONE DENSITY W/WO YASMIN EXAM: XR DEXA BONE DENSITY W/WO YASMIN CLINICAL HISTORY: osteoporosis, high fx risk from last DEXA,m81.0 TECHNIQUE: [employer] C densitometer analysis of left hip, lumbar spine and left forearm. Lateral survey image of the thoracic and lumbar spine. COMPARISON: CR XR DEXA BONE DENSITY W/WO YASMIN from 10/03/2022 CR,RF RF BARIUM SWALLOW from 03/02/2024 FINDINGS: Lateral view of the thoracic and lumbar spine shows no evidence of compression fractures. Bone mineral density measurements of the lumbar spine correspond to a total T- score of -2.2, in the osteopenic range. This is not significantly changed from the prior exam. Bone mineral density measurements of the left hip correspond to a total T-score of -2.6, in the range. There is unchanged from the prior exam. The femoral neck T-score is -2.1. Theleft forearm bone mineral density measurements correspond to a T-score of the distal 3rd of -2.5, in the osteopenic parotic range. This represents a 6 percent decrease from 202. IMPRESSION: Osteopenia of the spine and forearm. Osteoporosis of the hip.
== END ==
LOC: DI 02:28
PROVIDERS: Visit Provider Family Medicine
DX: M81.0 Age-related osteoporosis without current pathological fracture (principal); Z12.31 Encounter for screening mammogram for malignant neoplasm of breast; N63.20 Unspecified lump in the left breast, unspecified quadrant
CPT/HCPCS: 77063; 77067; 77080